=== PATIENT | male | born 1995 | race Caucasian/White ===

== ENCOUNTER 2019-05-26 21:34 | Emergency (ER) | payer OTHER ==
[~2019-05-26] VITALS: Ht 180.3 cm; Wt 77.1 kg
[2019-05-26 22:15] LABS: ABSOLUTE NEUTROPHILS 6.3 thou/uL (1.4-8.2); BASOPHILS 0.6 % (0.0-2.0); EOSINOPHILS 0.2 % (0.0-3.0); HEMOGLOBIN 14.3 gm/dL (14.0-18.0); LYMPHOCYTES 33.5 % (24.0-44.0); MCH 27.5 pg (26.0-34.0); MCHC 33.2 g/dL (28.0-37.0); MONOCYTES 6.4 % (1.0-8.0); PLATELET COUNT 243 thou/uL (150-400); POLYS 59.3 % (36.0-66.0); RBC 5.18 mil/uL (4.50-6.00); RDW 13.9 % (10.5-14.5); WBC 10.6 thou/uL (4.0-11.0)
[2019-05-26 22:21] LABS: CALCIUM 9.6 mg/dL (8.5-10.1); CREATININE 1.5 mg/dL (0.7-1.3); POTASSIUM 3.9 mmol/L (3.5-5.1)
[2019-05-26 22:28] LABS: ALBUMIN 4.6 g/dL (3.4-5.0); DIRECT BILIRUBIN 0.3 mg/dL (<0.1-0.3); TOTAL BILIRUBIN 1.8 mg/dL (<0.1-1.0); TOTAL PROTEIN 8.2 g/dL (6.4-8.2)
[2019-05-27] MEDS ORDERED: WELLBUTRIN 75 M75 M1 PO (00:22)
[2019-05-27 00:56] LABS: AMP/METHAMP POSITIVE (Negative); BARBITURATES Negative (Negative); BENZODIAZEPINES POSITIVE (Negative); COCAINE Negative (Negative); METHADONE Negative (Negative); OPIATES POSITIVE (Negative); PCP Negative (Negative)
[2019-05-27 00:57] VITALS: BP 118/75
--- NOTE | 2019-05-27 08:17 | EKG ---
[place] [address] [facility] [place] [address] ELECTROCARDIOGRAM REPORT Name: HAWK GONZALEZ Room #: [facility] CENTERFairda#: [id number] Admission: 05/26/19 Attend Phys: Discharge: 05/27/19 Date of : [birth year] Report #: [id number] THIS REPORT FOR: //name// [facility] ED Test Date: 2019-05-26 Test Time: 23:08:07 Pat Name: HAWK CAMACHO Department: Room: Gender: Television Mechanic: : 1995 Requested By: Becky Villalpando Order Number: [id number] MD: Tone Penn Measurements Intervals [place] Rate: 78 P: 78 DC: 154 QRS: 81 QRSD: 112 T: 60 QT: 440 QTc: 502 Interpretive Statements Sinus arrhythmia Normal tracing No previous ECG available for comparison Electronically Signed On 05-27-2019 8:17:47 CDT by Tone Penn [email or web address] <ELECTRONICALLY SIGNED> By: Tone Penn MD, [facility] 05/27/19 0817 [id number] Tone Penn MD, FACC /EPI
== END 2019-05-27 01:00 | disposition home or self-care (01) ==
LOC: ER 21:34
PROVIDERS: Emergency Medicine
DX: T40.2X1A Poisoning by other opioids, accidental (unintentional), initial encounter (principal); Z79.899 Other long term (current) drug therapy; Y92.89 Other specified places as the place of occurrence of the external cause